=== PATIENT | female | born 1970 | race African-American/Black ===

== ENCOUNTER 2017-12-06 14:40 | Emergency (ER) | payer OTHER ==
[~2017-12-06] VITALS: Ht 162.6 cm; Wt 68.0 kg
[~2017-12-06 14:40] MED LIST: NORVASC2.5 MG PO; NORVASC5 MG PO
[2017-12-06] MEDS ORDERED: ZPAK PO (16:20)
[2017-12-06] MEDS ORDERED: OSELB75 PO (16:20)
== END 2017-12-06 16:34 | disposition home or self-care (01) ==
LOC: ER 14:40
DX: J18.9 Pneumonia, unspecified organism (principal); I10 Essential (primary) hypertension

== ENCOUNTER 2018-05-11 19:51 | Emergency (ER) | payer OTHER ==
[~2018-05-11] VITALS: Ht 165.1 cm; Wt 61.2 kg
--- NOTE | ~2018-05-11 | EKG ---
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 05/12/18811 21 21 Juan Walton MD, [facility] /EPI
[~2018-05-11 19:51] MED LIST changes: +OSELB75 PO; +ZPAK PO
[2018-05-11 20:20] LABS: URINE BILIRUBIN NEGATIVE (Negative); URINE BLOOD 1+ (Negative); URINE CLARITY CLEAR; URINE COLOR YELLOW; URINE GLUCOSE-RANDOM* NEGATIVE (Negative); URINE KETONES NEGATIVE (Negative); URINE LEUKOCYTES-REFLEX NEGATIVE (Negative); URINE NITRITE-REFLEX NEGATIVE (Negative); URINE PROTEIN (DIPSTICK) NEGATIVE (Negative); URINE SPECIFIC GRAVITY >= 1.030 (1.005-1.035); URINE UROBILINOGEN 0.2 E.U./dl (0.2-1.0)
[2018-05-11 20:31] LABS: BACTERIA-REFLEX 1-9 Few /HPF (None Seen); CASTS None Seen /LPF (None Seen); CRYSTALS None Seen /LPF (None Seen); SQUAMOUS 0-3 Few /LPF (0-3); URINE RBC 0-2 Rare /HPF (0-2); URINE WBC-REFLEX None Seen /HPF (0-5)
[2018-05-11 20:42] LABS: ABSOLUTE NEUTROPHILS 4.5 thou/uL (1.4-8.2); BASOPHILS 0.8 % (0.0-2.0); EOSINOPHILS 0.9 % (0.0-3.0); HEMATOCRIT 42.9 % (37.0-47.0); LYMPHOCYTES 22.5 % (24.0-44.0); MCH 22.7 pg (26.0-34.0); MCHC 32.6 g/dL (28.0-37.0); MCV 69.6 fL (80.0-100.0); MONOCYTES 7.4 % (1.0-8.0); PLATELET COUNT 230 thou/uL (150-400); POLYS 68.4 % (36.0-66.0); RBC 6.17 mil/uL (4.20-5.00); RDW 14.7 % (10.5-14.5); WBC 6.5 thou/uL (4.0-11.0)
[2018-05-11 20:49] LABS: ANION GAP 9 mmol/L (7-16); BUN 18 mg/dL (7-18); CALCIUM 9.5 mg/dL (8.5-10.1); CHLORIDE 104 mmol/L (98-107); CO2 25 mmol/L (21-32); GLUCOSE 138 mg/dL (74-106); POTASSIUM 3.5 mmol/L (3.5-5.1); SODIUM 138 mmol/L (136-145)
[2018-05-11 20:58] LABS: ALBUMIN 3.8 g/dL (3.4-5.0); SGOT 19 U/L (15-37); SGPT 20 U/L (30-65); TOTAL BILIRUBIN 0.8 mg/dL (<0.1-1.0); TOTAL PROTEIN 7.7 g/dL (6.4-8.2); TROPONIN-I <0.06 ng/mL (<0.06)
[2018-05-11 21:21] LABS: HYPOCHROMASIA 1+; MICROCYTES 2+; SCHISTOCYTES OCCASIONAL
[2018-05-11] MEDS ORDERED: NORVASC5 MG PO (21:48)
[2018-05-11 22:25] VITALS: BP 136/96
== END 2018-05-11 22:26 | disposition home or self-care (01) ==
LOC: ER 19:51
PROVIDERS: Nurse Practitioner Family
DX: I16.0 Hypertensive urgency (principal); Z91.14 Patient's other noncompliance with medication regimen

== ENCOUNTER 2019-05-05 19:48 | Emergency (ER) | payer OTHER ==
[~2019-05-05] VITALS: Ht 165.1 cm; Wt 67.1 kg
[2019-05-05 20:15] LABS: URINE BILIRUBIN NEGATIVE (Negative); URINE BLOOD 2+ (Negative); URINE CLARITY CLEAR; URINE COLOR YELLOW; URINE GLUCOSE-RANDOM* NEGATIVE (Negative); URINE KETONES TRACE (Negative); URINE LEUKOCYTES-REFLEX NEGATIVE (Negative); URINE PROTEIN (DIPSTICK) NEGATIVE (Negative); URINE SPECIFIC GRAVITY 1.025 (1.005-1.035); URINE UROBILINOGEN 0.2 E.U./dl (0.2-1.0)
[2019-05-05 20:16] LABS: URINE NITRITE-REFLEX POSITIVE (Negative)
[2019-05-05 20:24] LABS: BACTERIA-REFLEX >30 Many /HPF (None Seen); CASTS None Seen /LPF (None Seen); CRYSTALS None Seen /LPF (None Seen); SQUAMOUS 0-3 Few /LPF (0-3); URINE RBC 0-2 Rare /HPF (0-2); URINE WBC-REFLEX 0-5 Rare /HPF (0-5)
[2019-05-05] MEDS ORDERED: FLAGYL500 M1 PO (21:29)
[2019-05-05 21:38] VITALS: BP 125/86
== END 2019-05-05 21:40 | disposition home or self-care (01) ==
LOC: ER 19:48
PROVIDERS: Emergency Medicine
DX: A59.03 Trichomonal cystitis and urethritis (principal); I10 Essential (primary) hypertension

== ENCOUNTER 2019-07-11 15:17 | Emergency (ER) | payer OTHER ==
[~2019-07-11] VITALS: Ht 165.1 cm; Wt 63.5 kg
[~2019-07-11 15:17] MED LIST changes: +FLAGYL500 M1 PO
[2019-07-11] MEDS ORDERED: LISINOPRIL-HCT1 EACH PO (15:34)
[2019-07-11] MEDS ORDERED: ZESTORETIC 10-1 EACH PO (16:05)
[2019-07-11 16:38] VITALS: BP 147/96
== END 2019-07-11 16:40 | disposition home or self-care (01) ==
LOC: ER 15:17
DX: I10 Essential (primary) hypertension (principal); Z76.0 Encounter for issue of repeat prescription

== ENCOUNTER 2020-06-27 16:27 | Emergency (ER) | payer OTHER ==
[~2020-06-27] VITALS: Ht 165.1 cm; Wt 70.8 kg
[~2020-06-27 16:27] MED LIST changes: +LISINOPRIL-HCT1 EACH PO; +ZESTORETIC 10-1 EACH PO
[2020-06-27 17:23] LABS: ANION GAP 8 mmol/L (7-16); BUN 11 mg/dL (7-18); CALCIUM 9.7 mg/dL (8.5-10.1); CHLORIDE 99 mmol/L (98-107); CO2 29 mmol/L (21-32); GLUCOSE 112 mg/dL (74-106); POTASSIUM 3.3 mmol/L (3.5-5.1); SODIUM 136 mmol/L (136-145)
[2020-06-27 17:25] LABS: URINE BILIRUBIN NEGATIVE (Negative); URINE BLOOD 1+ (Negative); URINE CLARITY CLEAR; URINE COLOR YELLOW; URINE GLUCOSE-RANDOM* NEGATIVE (Negative); URINE KETONES NEGATIVE (Negative); URINE LEUKOCYTES-REFLEX TRACE (Negative); URINE NITRITE-REFLEX NEGATIVE (Negative); URINE PROTEIN (DIPSTICK) NEGATIVE (Negative); URINE SPECIFIC GRAVITY 1.015 (1.005-1.035); URINE UROBILINOGEN 0.2 E.U./dl (0.2-1.0)
[2020-06-27 17:31] LABS: TROPONIN-I <0.06 ng/mL (<0.06)
[2020-06-27 17:44] LABS: SQUAMOUS 0-3 Few /LPF (0-3)
[2020-06-27 17:45] LABS: BACTERIA-REFLEX None Seen /HPF (None Seen); CRYSTALS None Seen /LPF (None Seen); URINE RBC None Seen /HPF (0-2); URINE WBC-REFLEX 0-5 Rare /HPF (0-5)
[2020-06-27 18:40] VITALS: BP 128/81
--- NOTE | 2020-06-28 07:49 | EKG ---
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: : 1970 Requested By: Sesar Shukla Order Number: [id number] MD: Juan Walton Measurements Intervals [place] Rate: 83 P: 13 MD: 151 QRS: 14 QRSD: 82 T: -17 QT: 357 QTc: 420 Interpretive Statements Sinus rhythm Anteroseptal infarct, old Nonspecific T wave abnormality Compared to ECG 05/11/2018 20:22:47 No significant changes Electronically Signed On 06-28-2020 7:48:58 CDT by Juan Walton [email or web address] <ELECTRONICALLY SIGNED> By: Juan Walton MD, [facility] 06/28/20 0748 [id number] 1657 Juan Walton MD, [facility] /EPI
== END 2020-06-27 18:40 | disposition home or self-care (01) ==
LOC: ER 16:27
PROVIDERS: Nurse Practitioner
DX: I10 Essential (primary) hypertension (principal); R51 Headache; R53.1 Weakness